=== PATIENT | male | born 1990 | race Caucasian/White ===

== ENCOUNTER 2025-06-26 15:35 | Emergency (ER) | payer BC, SELFPAY ==
[2025-06-26 15:38] VITALS: BP 160/102
[2025-06-26 15:53] VITALS: BMI 45.6
[2025-06-26 15:54] VITALS: BP 134/109
[2025-06-26 16:00] VITALS: BP 131/92
--- NOTE | 2025-06-26 16:13 | ED.GENMED ---
History of Present Illness
General
Chief Complaint: Heart Rate Problem
Time Seen by Provider: 06/26/25 16:01
Nursing documentation reviewed up to this point in time: agreed with
History of Present Illness
History of Present Illness:
35-year-old male presents to the ER for evaluation of palpitations which started this morning. Patient states that he experienced this approximately 4 months ago, right after they found out that they were . He had seen his primary care
physician in [place] where he was living at that time. No acute etiology was found. Patient states he has been eating and drinking normally, though perhaps not as much water as usual the past few days as they are icemaker broke. He denies any
nausea or vomiting. No chest pain, just an awareness that his heart is fluttering occasionally. He denies any shortness of breath. He has been experiencing more symptoms of GERD at nighttime and has been taking Tums pretty frequently. He admits
that he has gained some weight recently, which he jokingly refers to a sympathy weight for his . He has not yet establish care with a primary care physician locally. He does not take any prescription medications on a daily basis.
Past History
Past History
ED Past Medical History: None
Review of Systems
Review of Systems
Allergies reviewed?: Yes
Phy Exam
Physical Exam
Physical Exam:
Patient is awake, alert, obese, laughing easily during exam, appears in no acute distress, head is NCAT, PERRL, EOMI mucous membranes moist, conjunctiva pink, heart regular rate and rhythm without murmurs or ectopy, lungs are clear to auscultation
without wheezes rales or rhonchi, no JVD, abdomen is soft and nontender on palpation, extremities without edema, GCS is 15
Course
Orders/Labs/Results
Orders:
Orders
06/26/25 15:51
Electrocardiogram (*1) Urgent
Reason for Study: Palpitations
06/26/25 15:52
EKG- Treatment ONCE
06/26/25 16:11
0.9% Sodium Chloride 1000 ml [Nss] 1,000 ml IV BOLUS
06/26/25 16:12
Cardiac Monitoring- Treatment ONCE
CR Chest - 2 Views Urgent
Comment:
Reason For Exam: chest pain
06/26/25 16:31
Basic Metabolic Panel Urgent
Complete Blood Count/No Diff Urgent
Magnesium Urgent
TSH Urgent
Abnormal Lab Results
06/26/25
16:31
MPV 10.9 H fL
(7.4-10.4)
06/26/25 16:31
06/26/25 16:31
Vital Signs
Initial and Last Documented VS:
Initial Vital Signs
Temp Pulse Resp BP Pulse Ox
98.5 F 94 18 160/102 97
06/26/25 15:38 06/26/25 15:38 06/26/25 15:38 06/26/25 15:38 06/26/25 15:38
Last Documented Vital Signs
Temp Pulse Resp BP Pulse Ox
98.5 F 78 22 126/76 99
06/26/25 15:38 06/26/25 17:46 06/26/25 16:30 06/26/25 17:46 06/26/25 18:12
MDM/Problems Addressed
Differential Diagnosis Includes:
Differential diagnosis considered but not limited to electrolyte dyscrasia, dehydration, arrhythmia along with other allergies considered
Chronic conditions affecting care:
None
*Radiology
Radiology exam reviewed: preliminary read by ED provider (I dependently viewed and interpreted two-view chest x-ray showing no acute process, no infiltrate, normal cardiac silhouette) and radiology read reviewed (In agreement with my interpretation)
*Pulse Oximetry
SaO2: 98
Oxygen Mode of Delivery: Room air
Patient hypoxic: no
*EKG
Interpreted by ED Provider?: Yes (I independently viewed and interpreted twelve-lead EKG showing normal sinus rhythm, no ectopy, rate 84, normal axis, normal intervals, this is a normal tracing)
*Spinning Lathe Operator Interpretation
Rate: normal (I independently viewed and interpreted rhythm strip showing normal sinus rhythm with occasional PVCs)
*Critical Care Note
Total Time (30-74mins, 75-104mins- exclusive of procedures): Not Applicable
Update Note
Update Note:
While speaking with the patient, multiple PVCs are seen on the monitor, at most bigeminy for less than 5 seconds. I discussed with patient very reassuring evaluation. Will check screening labs along with chest x-ray. Will also give 1 L of fluids
while awaiting test results. Patient agrees with plan at current
Patient resting comfortably while monitored in the ER. PVCs only seen on monitor. IV fluids infused. Patient feeling improved overall. I discussed with patient and not present at bedside very reassuring workup-no electrolyte dyscrasia,
normal TSH, normal chest x-ray. I discussed with them plan for outpatient follow-up with cardiology for Holter monitor. We also discussed overall lifestyle improvements including benefit of weight loss, symptomatic treatment of GERD and initiation
of [id number] Pepcid, reduction of caffeine intake. Patient and expressed understanding of discharge plan and felt comfortable. They have no questions prior to leaving the department.
ED Attending Note
-
Portions of this chart may have been created with voice recognition software.� Occasional wrong word or��sound alike� substitutions may have occurred due to the inherent limitations of voice recognition software.
Discharge Plan
Departure
Patient Disposition: Home (Routine Discharge)
Date of Disposition: 06/26/25
Time of Disposition: 17:53
Patient with high blood pressure during this ER visit?: Yes
Discharge Problem:
PVC's (premature ventricular contractions)
Instructions: Palpitations (DC), Acid reflux and GERD in adults - ED (DC)
Referrals:
Aleks Bridges MD [Active, Cardiology] - Next open appointment
Discharge Problem: PVC's (premature ventricular contractions)
Activity Restrictions/Additional Instructions:
Encourage fluids-you should be drinking at least eight 8 ounce glasses of water daily. Please contact cardiology office tomorrow to schedule appointment for reevaluation and 'Holter monitor' for further evaluation of your palpitations. Please
return to the ER for any concerns. You may also consider using Pepcid daily which is available [id number] to help with your symptoms of GERD while you are seeking strategies for weight loss.
Interventions
Interventions:
*Risk Screen - Suicide Last Done: 06/26/25 15:37
*General Assessment Last Done: 06/26/25 18:12
*Neglect/Abuse Screening Last Done: 06/26/25 18:12
*ED COVID-19 Vaccine History Last Done: 06/26/25 18:12
*ED Influenza Vaccine History Last Done: 06/26/25 18:12
[facility] Risk Assessment Tool Last Done: 06/26/25 16:10
*Nursing Disposition Last Done: 06/26/25 18:12
ED- Cardiac Assessment Last Done: 06/26/25 16:11
ED- Pulmonary Assessment Last Done: 06/26/25 18:15
Discharge Date and Time
Print Language: COMORAN
[2025-06-26] MEDS: NSS 1000 IV (16:29)
[2025-06-26 16:47] LABS: Hematocrit 41.4 % (39.0-52.0); Hemoglobin 14.4 g/dL (13.0-18.0); Mean Corp Hgb Conc. 34.8 g/dL (33.0-37.0); Mean Corpuscular Volume 85.2 fL (80.0-94.0); Platelet Count 273 10^3/uL (130-400); Red Cell Dist. Width 11.6 % (11.5-14.5)
[2025-06-26 17:00] LABS: Blood Urea Nitrogen 9 mg/dl (9-20); Calcium 9.8 mg/dl (8.4-10.2); Carbon Dioxide 28 mmol/L (22-30); Chloride 101 mmol/L (98-107); Estimated Creatinine Clearance > 125 ml/min; Glucose 77 mg/dl (70-99); Magnesium 1.9 mg/dl (1.6-2.3); Potassium 4.1 mmol/L (3.5-5.1); Sodium 136 mmol/L (135-145); eGFR > 60.00
[2025-06-26 17:27] LABS: TSH 1.80 uIU/ml (0.47-4.68)
[2025-06-26 17:46] VITALS: BP 126/76
== END 2025-06-26 18:12 | disposition home or self-care (01) ==
LOC: EMR 15:35
PROVIDERS: EMERGENCY PHYSICIAN Emergency Medicine
DX: I49.3 Ventricular premature depolarization (principal); R03.0 Elevated blood-pressure reading, without diagnosis of hypertension; K21.9 Gastro-esophageal reflux disease without esophagitis
CPT/HCPCS: 99284; 96360; 71046; 80048; 83735; 84443; 85027; 93005